=== PATIENT | female | born 1985 | race Caucasian/White ===

== ENCOUNTER 2023-11-19 17:25 | Emergency (ER) | payer OTHER, SELFPAY ==
[2023-11-19 17:36] VITALS: BP 115/69
[2023-11-19 19:34] LABS: % Basophils 0.8 % (0-2); % Eosinophils 4.6 % (0-6); % Immature Granulocytes 0.3 % (0-0.5); % Lymphocytes 24.4 % (20.5-51.1); % Monocytes 4.1 % (1.7-9.3); % Neutrophils 65.8 % (42.2-75.2); Absolute Basophils 0.1 10^3/uL (0-0.2); Absolute Eosinophils 0.5 10^3/uL (0-0.7); Absolute Lymphocytes 2.6 10^3/uL (1.2-3.4); Absolute Monocytes 0.4 10^3/uL (0.1-0.6); Absolute Neutrophils 6.9 10^3/uL (1.4-6.5); Hematocrit 40.2 % (37.0-47.0); Hemoglobin 14.3 g/dL (12.0-16.0); Mean Corp Hgb Conc. 35.6 g/dL (33.0-37.0); Mean Corpuscular Hgb 31.8 pg (27.0-31.0); Mean Corpuscular Volume 89.5 fL (81.0-99.0); Mean Platelet Volume 10.4 fL (7.4-10.4); Nucleated Red Blood Cells % 0 %; Platelet Count 331 10^3/uL (130-400); Red Blood Cell Count 4.49 10^6/uL (4.20-5.40); Red Cell Dist. Width 12.7 % (11.5-14.5); White Blood Cell Count 10.4 10^3/uL (4.8-10.8)
[2023-11-19 19:45] LABS: ALT (SGPT) 15 U/L (0-35); AST (SGOT) 23 U/L (14-36); Albumin 4.3 g/dl (3.5-5.0); Alkaline Phosphatase 55 U/L (38-126); Blood Urea Nitrogen 9 mg/dl (7-17); Calcium 9.4 mg/dl (8.4-10.2); Carbon Dioxide 21 mmol/L (22-30); Chloride 106 mmol/L (98-107); Glucose 147 mg/dl (70-99); Potassium 3.8 mmol/L (3.5-5.1); Sodium 136 mmol/L (135-145); Total Bilirubin 0.6 mg/dl (0.2-1.3); Total Protein 6.7 g/dl (6.3-8.2); eGFR > 60.00
--- NOTE | 2023-11-19 20:09 | ED.GENMED ---
History of Present Illness
General
Chief Complaint: Headache
Source: patient
Exam Limitations: none
Time Seen by Provider: 11/19/23 19:00
Nursing documentation reviewed up to this point in time: agreed with
Travel History
Have you had any contact with someone who has COVID-19?: No
Do you have any symptoms of coronavirus? Fever > 100 degrees, chills, cough, shortness of breath, sore throat, loss of taste or smell, muscle aches, or headache?: No
History of Present Illness
History of Present Illness:
The patient is a 37-year-old female who reports that she had several days of neck pain and now the pain seems to have traveled into base of her head and into her face. Patient denies nausea, vomiting, weakness and numbness. Patient reports she
does have a weird pressure sensation in her left face. However, she denies any significant pain. She denies rash, sore throat and recent illness. Patient reports that she was started on muscle relaxers and steroids for the neck pain and that has
helped with the neck pain but she still has a headache. She denies a history of migraine headache. She denies any left arm or left leg numbness or weakness.
Past History
Past History
ED Past Medical History: Psychiatric (Anxiety)
ED Past Surgical History: Appendectomy
Social History
Tobacco: Non-smoker
Alcohol: None
Drug: None
Personal:
Living: with family
Employment: Other
Family History
Family History: Other
Review of Systems
Review of Systems
Allergies reviewed?: Yes
All Other Systems: ROS reviewed and negative except as documented in HPI and ROS
Constitutional: Reports no symptoms
EENT: Reports no symptoms
Respiratory: Reports no symptoms
Cardiac: Reports no symptoms
ABD/GI: Reports no symptoms
: Reports no symptoms
Musculoskeletal: Reports neck pain
Skin: Reports no symptoms
Neurological: Reports headache
Hematologic/Lymphatic: Reports no symptoms
Psychiatric: Reports no symptoms
Phy Exam
Physical Exam
Physical Exam:
Physical Exam
General: no apparent distress, not acutely ill. Well and comfortable appearing
Neck: supple. no meningeal signs. normal psoterior pharynx
Heart: s1/s2 regular rate and rhythm, no murmur. equal radial pulses.
Lungs: no acute respiratory distress. clear bilaterally
Abdomen: normal bowel sounds. not tender. no CVAT
Neuro: alert and orientedx3. no focal neurological deficits. 5 out of 5 strength in all extremities. No drift. Normal [id number]. Steady gait. Visual potter intact.
Skin: no rash
Psychiatric: well kept. interactive and cooperative
Extremities: no edema. no calf tenderness. negative homans. good distal pulses
Course
Orders/Labs/Results
Orders:
Orders
11/19/23 19:14
Complete Blood Count/With Diff Urgent
Comprehensive Metabolic Panel Urgent
HCG, Serum Qualitative Screen Urgent
Comment: ADD ON
11/19/23 19:37
Add On- LAB Urgent
Tests Added?: serum Beta HCG qualitative
11/19/23 19:38
CT Head W/o Iv Contrast Urgent
Comment:
Reason For Exam: R sided headache
11/19/23 20:55
0.9% Sodium Chloride 1000 ml [Nss] 1,000 ml IV BOLUS
Ketorolac [Toradol] 30 mg IV NOW STA
Abnormal Lab Results
11/19/23
19:14
MCH 31.8 H pg
(27.0-31.0)
Absolute Neuts (auto) 6.9 H 10^3/uL
(1.4-6.5)
Carbon Dioxide 21 L mmol/L
(22-30)
Glucose 147 H mg/dl
(70-99)
11/19/23 19:14
11/19/23 19:14
Vital Signs
Initial and Last Documented VS:
Initial Vital Signs
Temp Pulse Resp BP Pulse Ox
98.0 F 100 16 115/69 98
11/19/23 17:36 11/19/23 17:36 11/19/23 17:36 11/19/23 17:36 11/19/23 17:36
Last Documented Vital Signs
Temp Pulse Resp BP Pulse Ox
98.0 F 64 17 94/60 97
11/19/23 17:36 11/19/23 21:31 11/19/23 21:31 11/19/23 21:31 11/19/23 21:31
MDM/Problems Addressed
Differential Diagnosis Includes:
Atypical migraine headache, tension headache, subarachnoid hemorrhage
MDM/Problems Addressed:
Patient presents with acute headache
*Radiology
Radiology exam reviewed: radiology read reviewed
*Pulse Oximetry
Patient hypoxic: no
*EKG
Interpreted by ED Provider?: NA
*Yard Specialist Interpretation
Rate: normal
Interpretation: normal
Rhythm: sinus
*Critical Care Note
Total Time (30-74mins, 75-104mins- exclusive of procedures): Not Applicable
Data Reviewed
Source: patient
Patient Management
Social determinants of health affecting care: Living situation and Strong social support
Escalation/DeEscalation of care consider admission/obs:
10:00 PM patient looks very well and comfortable. There is no sign of meningismus on exam. Patient may have tension or migraine headache.
ED Attending Note
-
Portions of this chart may have been created with voice recognition software.� Occasional wrong word or��sound alike� substitutions may have occurred due to the inherent limitations of voice recognition software.
Discharge Plan
Departure
Patient Disposition: Home (Routine Discharge)
Date of Disposition: 11/19/23
Time of Disposition: 22:07
Patient with high blood pressure during this ER visit?: No
Condition: Good
Covid-19: Not Applicable
Discharge Problem:
Acute headache
Instructions: Headache, Adult (DC)
Prescriptions:
New
kxzgvenxzm-qfpfjxfxydxpo-acpi [Fioricet] 50-300-40 mg capsule
1 cap PO TID PRN (Reason: headache) Qty: 7 0RF
Referrals:
Alvaro Rosenthal CRNP [Family Provider] -
Interventions
Interventions:
*ED COVID-19 Vaccine History Last Done: 11/19/23 17:36
ED- Neurological Assessment Last Done: 11/19/23 19:04
[2023-11-19 20:52] LABS: HCG, Serum Qualitative Screen Negative
[2023-11-19] MEDS: NSS 1000 IV (21:23)
[2023-11-19] MEDS: TORADOL 30 MG IV (21:26)
[2023-11-19 21:30] VITALS: BP 83/55
[2023-11-19 21:31] VITALS: BP 94/60
[2023-11-19 22:12] VITALS: BP 94/63
[2023-11-19 22:37] VITALS: BP 94/63
== END 2023-11-19 22:38 | disposition home or self-care (01) ==
LOC: EMR 17:25
PROVIDERS: EMERGENCY PHYSICIAN Emergency Medicine; FAMILY PHYSICIAN Nurse Practitioner Family
DX: R51.9 Headache, unspecified (principal); M54.2 Cervicalgia; F41.9 Anxiety disorder, unspecified; Z90.49 Acquired absence of other specified parts of digestive tract
CPT/HCPCS: 99284; 70450; 80053; 84703; 85025